=== PATIENT | female | born 1940 | race Caucasian/White ===

== ENCOUNTER → 2018-04-26 14:53 | Outpatient (CLI) | payer MEDICARE, OTHER, SELFPAY ==
[2018-04-26 17:24] LABS: Estimated Glomerular Filt Rate > 60.0 mL/min (>60)
== END ==
PROVIDERS: Family Provider Family Medicine; PCP Family Medicine; Visit Provider Surgery
DX: C50.912 Malignant neoplasm of unspecified site of left female breast (principal)
CPT/HCPCS: 36415; 82565

== ENCOUNTER → 2018-05-06 12:06 | Outpatient (CLI) | payer MEDICARE, OTHER, SELFPAY ==
--- NOTE | 2018-05-06 12:07 | DI.MRI.S_ITS ---
BREAST MRI OF BOTH BREASTS : 05/06/2018 CLINICAL: Malignant neoplasm of left breast. Comparison is made to exams dated: 03/31/2018 mammogram, 03/23/2018 mammogram, and 02/16/2018 mammogram - [facility]. Informed consent was obtained from the patient. Axial T1, T2, and pre and post contrast T1 images were obtained. Bilateral background breast enhancement is mild. There is a 0.4 cm x 0.7 cm x 0.6 cm irregular mass with a spiculated margin in the left breast at 3 o'clock middle depth (se 16 im 147 and se 10 im 42). There is a post biopsy marker in expected location at the inferior margin of the mass. There are numerous mediastinal masses and possible lingular masses which are poorly seen on breast MRI. IMPRESSION: KNOWN BIOPSY PROVEN MALIGNANCY 1. The 0.4 cm x 0.7 cm x 0.6 cm irregular mass in the left breast is a known biopsy positive for malignancy. 2. There is no MRI evidence of malignancy in the remaining left breast or in the right breast. 3. There are possible mediastinal lympn nodes or vascular structures as well as possible lingular masses. Given the lack of abnormal axillary lymph nodes and small size of the primary tumor breast cancer metastasis are unlikely. Recommend a chest CT with contrast for further evaluation. This exam was interpreted at Station ID: [id number]. Electronically Signed By: Zachariah Santos M.D. cj/:05/06/2018 14:28:23 ACR BI-RADS Category 6: Known biopsy proven malignancy 3346F
== END ==
PROVIDERS: Family Provider Family Medicine; PCP Family Medicine; Visit Provider Surgery
DX: C50.912 Malignant neoplasm of unspecified site of left female breast (principal)
CPT/HCPCS: C8908

== ENCOUNTER → 2018-05-12 08:32 | Outpatient (CLI) | payer MEDICARE, OTHER, SELFPAY ==
--- NOTE | 2018-05-12 08:55 | DI.CT.S_ITS ---
PROCEDURE: CT CHEST WO CON INDICATIONS: Breast cancer TECHNIQUE: Noncontrast 5 mm thick sections acquired from the pulmonary apices to the posterior costophrenic angles. 7 mm thick coronal and sagittal MIP reformats were then acquired. For radiation dose reduction, the following was used: automated exposure control, adjustment of mA and/or kV according to patient size. COMPARISON: None. FINDINGS: Image quality: Excellent. Lungs and pleura: No acute air space opacities. No pulmonary nodules. No pleural effusions or pneumothorax. Central and peripheral airways are patent and normal in caliber. Mediastinum: Heart size is normal. Coronary artery calcifications. Mild 8 mm thick pericardial effusion. No mediastinal adenopathy by size criteria. Thoracic aorta and central pulmonary arteries are normal in size. Esophagus is normal in caliber. No hiatal hernia. Bones and chest wall: No suspicious bony lesions. No vertebral body compression fractures. No axillary or supraclavicular adenopathy by size criteria. Thyroid gland appears normal. Abdomen: Visualized upper abdominal solid organs and bowel loops appear normal in the absence of contrast. Gallbladder is surgically absent. Splenic calcification IMPRESSION: 1. No evidence of active pulmonary disease or metastases. 2. Atheromatous vascular disease with coronary artery calcifications. 3. Small pericardial effusion, indeterminate. 4. Splenic calcifications indicating prior granulomatous infection. 5. Status post cholecystectomy. Dictated by: Thiago Gomes M.D. on 05/12/2018 at 9:32 Approved by: Thiago Gomes M.D. on 05/12/2018 at 9:38
== END ==
PROVIDERS: Family Provider Family Medicine; PCP Family Medicine; Visit Provider Surgery
DX: C50.912 Malignant neoplasm of unspecified site of left female breast (principal); I25.10 Atherosclerotic heart disease of native coronary artery without angina pectoris; I31.3 Pericardial effusion (noninflammatory); D73.89 Other diseases of spleen; Z90.49 Acquired absence of other specified parts of digestive tract
CPT/HCPCS: 71250; 99213

== ENCOUNTER → 2018-05-16 12:13 | Outpatient (CLI) | payer MEDICARE, OTHER, SELFPAY | PROVIDERS: Family Provider Family Medicine; PCP Family Medicine; Visit Provider Surgery | DX: N63.20 Unspecified lump in the left breast, unspecified quadrant (principal) ==

== ENCOUNTER 2018-05-25 08:30 | Day surgery (SDC) | payer MEDICARE, OTHER, SELFPAY ==
[2018-05-18 08:58] VITALS: BMI 34.4
[2018-05-25] VITALS (14 sets, daily range): BP systolic 142–177; BP diastolic 78–100; PULSE 60–72; RESP 14–18; TEMP 36.1–36.7; O2SAT 92–97; BMI 34.4
--- NOTE | 2018-05-25 | PATH_ITS ---
[facility] Accession Number: [id number] . 01 Material submitted: . PART A: LEFT BREAST SENTINEL NODES, 554 AND 4894 PART B: LEFT BREAST MASS . 02 Diagnosis: A. [place] lymph nodes, left breast, excision (554 and 4894): Two lymph nodes negative for metastatic carcinoma by immunohistochemistry studies (0/2). . B. Left Breast Mass, Lumpectomy After Needle Localization: CAP CANCER CASE SUMMARY . Invasive carcinoma with the following features: . Procedure: Lumpectomy and sentinel node biopsy after needle localization and mapping. Specimen Laterality: Left. . Tumor site: Left breast at 3 o'clock per previous biopsy report ([facility] [id number]; 03/31/2018). Tumor size: 1.0 cm. Histologic type: Infiltrating ductal carcinoma. Histologic grade: Michael histologic score 2 of 3. Glandular/Tubular differentiation: Score 3 of 3. Nuclear Pleomorphism: Score 2 of 3. Mitotic Rate: Score 1 of 3. Overall Grade: Intermediate Grade (score 6 of 9). Tumor focality: Unifocal. Ductal carcinoma in situ: Size (Extent) of DCIS: Six scattered foci, each less than 1 mm. Architectural patterns: Cribriform and micropapillary. Nuclear grade: Grade 1 of 3. Necrosis: Not identified. Lobular carcinoma in situ: Patchy regions of atypical lobular hyperplasia / LCIS are present . Macroscopic and microscopic extent of tumor Skin: Not applicable. Nipple: Not applicable. Skeletal muscle: Not applicable. . Margins Invasive carcinoma: Anterior: 8 mm. Posterior: 7 mm. Superior: 3 mm. Inferior: Greater than 10 mm. Medial: Greater than 10 mm. Lateral: 5 mm. Ductal carcinoma in situ: Anterior: Greater than 10 mm. Posterior: Greater than 10 mm. Superior: 4 mm. Inferior: Greater than 10 mm. Medial: Greater than 10 mm. Lateral: Greater than 10 mm. . Lymph nodes Total number of lymph nodes examined: 2. Number of sentinel lymph nodes examined: 2. Lymph Node Involvement: Number of lymph nodes with macrometastases: 0 Number of lymph nodes with micrometastases: 0 Number of lymph nodes with isolated tumor cells: 0 Size of largest metastatic deposit: Not applicable. Extranodal Extension: Not applicable. . Treatment effect: Response to Presurgical Therapy Breast: Not identified. Lymph nodes: Not identified. . Lymph-vascular invasion: Dermal lymph-vascular invasion: Not applicable. Pathologic staging: AJCC, 8th ed., 2017 Primary tumor: pT1b Regional lymph nodes: pN0(sn)(i-). . Additional pathologic findings: Changes consistent with previous instrumentation present. Microcalcifications: Focally present and adjacent to a small focus of DCIS and associated with benign ductal epithelium. Biopsy marker clip present in slice #24. . Ancillary studies: Biomarkers Performed Previously on Case: [facility], [id number]; 03/31/2018. Estrogen Receptor (ER) Status: Positive (3+, greater than 95%). Progesterone Receptor (PgR) Status: Positive (3+, 90%). HER2 (by immunohistochemistry): Negative (1+). HER2 (ERBB2) (by in situ hybridization): Not applicable. Ki-67: Low proliferation index (5%-10%). E-Cadherin: Positive MRV/06/01/2018 . 02 Electronically signed: . Tamiko Thornton MD, Pathologist NPI- [id number] . 01 Gross description: . (A) Received in formalin, labeled left sentinel nodes, 554 + 4894, are two unstained lymph nodes (1.3 x 1.0 x 0.8 cm and 0.6 x 0.5 x 0.2 cm). Lymph node #1 is serially sectioned and entirely submitted in cassette A1 and #2 is bisected and entirely submitted in cassette A2. (B) Received in formalin, labeled left breast mass, wire is lateral, short is superior, long is anterior, is a piece of breast tissue (1.5 cm AP, 7.7 cm SI, 12.2 cm ML) with no overlying skin. The specimen is oriented with two black sutures (short-superior, long-anterior) and the localization wire is lateral. The specimen is serially sectioned ML into 26 slices with the medial and lateral resection margins as slices #1 and #26, respectively. The breast tissue is fatty and contains a kiser-white solid firm irregular mass (1.0 x 0.9 x 0.8 cm) within slices #23-#25. The mass is 0.8 cm from the anterior, 0.7 cm from the posterior, 0.3 cm from the superior, 4.8 cm from the inferior, 10.8 cm from the medial, and 0.5 cm from the lateral resection margins. A silver colored metal biopsy marker is identified within slice #24 within the mass. No other nodules, masses or lesions are identified. Ink code: purple-anterior; yellow-posterior; black-superior; orange-inferior; green-medial; blue-lateral. Section code: (B1) medial resection margin, perpendicularly sectioned, patient account representative; (B2) slice #9, patient account representative; (B3) slice #11, patient account representative; (B4) slice #16, patient account representative; (B5) slice #22, tissue adjacent to mass, patient account representative; (B6-B7) slice #23, entirely submitted; (B8) slice #24, patient account representative; (B9) slice #25, patient account representative; (B10) lateral resection margin, tissue adjacent to mass, perpendicularly sectioned, one-half submitted. Note: The mass is entirely submitted. Approximate total fixation time in formalin-64 hours 30 minutes, calculated using a collection date of 05/25/2018 with no collection time given. (:cmc10 2031) (:cmc80 8415) /MRV . 02 Microscopic: . An immunohistochemical stain for CHRISTOPHER is performed on blocks A1 and A2. A control stain shows appropriate reactivity. . RESULTS: Blocks A1 and A2 CHRISTOPHER: Negative. . * This test was developed and its performance characteristics determined by [facility]. It has not been cleared or approved by the U.S. Food and Drug Administration. The FDA has determined that such clearance or approval is not necessary. This test is used for clinical purposes. It should not be regarded as investigational or for research. . 02 Pathologist provided ICD-10: C50.912 . 02 CPT . 354361, E37351, Y59735, 661457 Performed at: [address], [place], [place] [id number] MD Hai Morales MD Phone: [phone] Performed at: 02 [facility] [address] [place] [id number] MD Estrada Scott MD Phone: [phone]
--- NOTE | 2018-05-25 | DI.US.S_ITS ---
ULTRASOUND GUIDED WIRE LOCALIZATION LEFT BREAST WITH POST DIGITAL MAMMOGRAPHIC AND ULTRASOUND IMAGIN05/25/2018 CLINICAL: Pre-op wire localization. Correlation is made to exams dated: 05/06/2018 breast MRI - [facility], 03/31/2018 mammogram, and 03/31/2018 ultrasound biopsy - [facility]. A wire localization using ultrasound guidance was performed for the marker clip located in the left breast at 4 o'clock middle depth. The skin was prepped in the usual manner. Local anesthetic was administered to the access site. The localization was approached from the lateral aspect. A J-hook wire was inserted into the targeted area under ultrasound guidance. Post placement digital mammographic and ultrasound imaging was obtained. IMPRESSION: WIRE LOCALIZATION Wire localization for the marker clip in the left breast at 4 o'clock middle depth was successful. This exam was interpreted at Station ID: [id number]. Thiago rodriguez/:05/25/2018 15:09:49
--- NOTE | 2018-05-25 08:45 | DI.NM.S_ITS ---
PROCEDURE: NM SENTINEL NODE W IMAGING RADIOPHARMACEUTICAL: 0.5-1.0 mCi Millipore filtered Tc-99m sulfur colloid. INDICATIONS: localization of sentinel node TECHNIQUE: The area around the nipple was prepped and draped in a sterile fashion. Tc-99m sulfur colloid was injected intra-dermally in the outer edge of the areola in the right, left breast. Images were obtained subsequently. A body contour outline was obtained. FINDINGS: There is/are lymph node(s) in the ipsilateral axilla, which is marked on the skin and the images for referring physician. IMPRESSION: Administration of radiotracer into the right, left breast periareolar region for intra-operative sentinel lymph node localization. Dictated by: Thiago Gomes M.D. on 05/25/2018 at 10:58 Approved by: Thiago Gomes M.D. on 05/25/2018 at 11:00
--- NOTE | 2018-05-25 09:17 | DI.MG.S_ITS ---
SPECIMEN LEFT BREAST: 05/25/2018 CLINICAL: Breast specimen. Correlation is made to exams dated: 05/25/2018 mammogram - [facility], 03/31/2018 mammogram, and 03/23/2018 mammogram - [facility]. A surgical biopsy specimen was imaged for the previous biopsy site located in the left breast at 4 o'clock middle depth. IMPRESSION: SPECIMEN The imaged specimen includes the lesion, a biopsy clip, and the distal portion of the localization wire. This exam was interpreted at Station ID: [id number]. Thiago rodriguez/:05/25/2018 15:06:59
--- NOTE | 2018-05-25 09:17 | DI.MG.S_ITS ---
UNILATERAL LEFT DIGITAL DIAGNOSTIC MAMMOGRAM: 05/25/2018 CLINICAL: Left breast mass. Post wire localization. Comparison is made to exams dated: 05/06/2018 breast MRI - [facility], 03/31/2018 mammogram, and 03/23/2018 mammogram - [facility]. The tissue of the left breast is predominantly fatty. There is a titanium marker clip in the left breast at 4 o'clock middle depth. This titanium marker clip is at biopsy site. An US guided localizing wire is adjacent to the Bx marker. IMPRESSION: KNOWN BIOPSY PROVEN MALIGNANCY The titanium marker clip in the left breast is a known biopsy positive for malignancy. Localizing wire is adjacent to the marker. This exam was interpreted at Station ID: [id number]. NOTE: For mammograms, a report in lay terms will be sent to the patient. Approximately 15% of breast malignancies will not be visualized mammographically. In the management of a palpable breast mass, a negative mammogram must not discourage biopsy of a clinically suspicious lesion. Electronically Signed By: Thiago rodriguez/:05/25/2018 10:36:05 ACR BI-RADS Category 6: Known biopsy proven malignancy 3346F
--- NOTE | 2018-05-25 09:20 | SUR.PREOP ---
Pt arrived to opd, vs taken , saline lock started and pt taken to ir via wheelchair.
[2018-05-25] MEDS: LACTATED RINGERS 1,000 ML 42 ML IV (10:35)
--- NOTE | 2018-05-25 12:53 | PM.PREOP ---
Pre-operative Note Interval Note Pre-op Check: Yes History & Physical Reviewed by Physician Changes: No
[2018-05-25] MEDS: CEFAZOLIN 2 GM/100 ML FROZ.PIGGY IV (13:00)
[2018-05-25] MEDS: LIDOCAINE 1% W/EPI INJ 20 ML INJ (13:33)
[2018-05-25] MEDS: BUPIVACAINE 0.5% (PF) VIAL 30 ML INJ (13:34)
--- NOTE | 2018-05-25 14:36 | P.OP_ITS ---
Operative Date/Time/Diagnoses Date of procedure: 05/25/18 Time of procedure: 14:31 Pre-op diagnosis: Biopsy-proven left breast cancer Post-op diagnosis: same Procedure & Clinicians Procedure: Left breast lumpectomy and sentinel node biopsy after needle localization and mapping Same procedure as scheduled: Yes Indications: Biopsy-proven left breast cancer. No other lesions appreciated on MRI Surgeon: Joanie Kang Click Yes if Unassisted: Yes Anesthesia Type: General (Dr. Berrios) Operative Notes Findings: 1. 2 sentinel nodes. The 1st with 10 sec count of 554 and the 2nd with a 10 sec count of 4894. Background in the axilla of less than 10. Background in the room of 0 2. Clip, wire, and lesion all contained within the specimen. Closure Type: primary Estimated Blood Loss (mL): 15 Procedure in detail: After obtaining informed consent, the patient was brought to the operating room and placed in the supine position on the operating table. Following successful induction of general endotracheal anesthesia, appropriate padding of all bony prominences, and placement of appropriate monitors, the left breast and axilla were prepped and draped in a standard surgical fashion. A timeout was held per SCOAP protocol. Following injection of mixture of local anesthetics into the axillary fold on the left side, an incision was created and carried down through the skin and subcutaneous tissue to enter the axillary fat pad below. The neoprobe was used to identify the sentinel node. This was done by identifying 2 small node in level 2 and level 3 of the axillary packet. The 1st node had a 1 second count of approximately 55 in a background of less than 10. The 2nd node had a 1 sec count of 490 again in a background of less than 10. The node was carefully liberated from the remainder of the axillary packet being sure not to compromise any of the other lymphatic structures. All afferent and efferent lymphatics and vasculature were addressed with hemoclips prior to division. The wound was checked for hemostasis and irrigated with warm water. It was closed in 2 layers with Vicryl and Monocryl suture. We continued with lumpectomy on the left side. A curvilinear incision was created to include the wire on the left side. Using traction and counter- traction, the mass and localizing wire carefully dissected free from the overlying skin, underlying muscle, and surrounding breast tissue. The mass was delivered into the field and marked appropriately. It was sent for specimen x- ray. The wound was checked for hemostasis and irrigated with water. The radiologist called back into the room noting that the specimen x-ray contained the wire clip and mass. The wound was checked once again for hemostasis. It was irrigated copiously with warm water and aspirated free of all fluid. A small piece of Surgicel was placed in the breast cavity up into the chest wall. The wound was checked once again for hemostasis and then closed in 2 layers with Vicryl Monocryl suture. Dermabond was applied to the skin incisions. Fluffs and a breast binder were applied. All sponge, needle, and instrument counts were correct at the conclusion case. The patient tolerated the procedure very well. She was allowed awaken from anesthesia and taken to the post-anesthesia care unit in good condition. Complications: none Condition: stable Disposition: PACU Plan for aftercare: 1. Discharge to home 2. Follow-up with me in 2 weeks
--- NOTE | 2018-05-25 14:49 | SUR.PHASEI ---
Moaning but hasdenied pain on two separate occasions when responding that question has said no.
[2018-05-25] MEDS: ONDANSETRON 4 MG/2 ML INJ IV (15:06)
[2018-05-25] MEDS: OXYCODONE IR 5 MG TABLET PO (15:19)
--- NOTE | 2018-05-25 15:24 | SUR.PHASEI ---
O2 sats are marginal and hixtory of CPAP use noted. This device is not used in PACU. No apneic periods seen, only sats being a bit low. (No lower than 90%). Is wearing a breat binder.
== END 2018-05-25 16:30 | disposition home or self-care (01) ==
PROVIDERS: Family Provider Family Medicine; PCP Family Medicine; Visit Provider Surgery
PROC: (CPT 19301; principal; 2018-05-25 10:45)
DX: C50.912 Malignant neoplasm of unspecified site of left female breast (principal); Z17.0 Estrogen receptor positive status [ER+]
CPT/HCPCS: 19301; 38500; 19285; 76098; 77065; 78195; A9541; J0690; J1100; J2250; J2405; J2704; J3010

== ENCOUNTER → 2018-06-22 14:23 | Outpatient (CLI) | payer MEDICARE, OTHER, SELFPAY | PROVIDERS: Family Provider Family Medicine; PCP Family Medicine | DX: M85.852 Other specified disorders of bone density and structure, left thigh (principal); C50.919 Malignant neoplasm of unspecified site of unspecified female breast; Z90.722 Acquired absence of ovaries, bilateral | CPT/HCPCS: 77080 ==

== ENCOUNTER → 2018-11-17 14:15 | Day surgery (SDC) | payer MEDICARE, OTHER, SELFPAY | PROVIDERS: Family Provider Family Medicine; PCP Family Medicine; Visit Provider Surgery ==

== ENCOUNTER 2018-12-08 07:52 | Day surgery (SDC) | payer MEDICARE, OTHER, SELFPAY ==
[2018-12-08] VITALS (9 sets, daily range): BP systolic 85–144; BP diastolic 44–79; PULSE 56–62; RESP 11–19; TEMP 36.1–37.1; O2SAT 93–98; BMI 33.9
--- NOTE | 2018-12-08 | PATH_ITS ---
[facility] Accession Number: [id number] . 01 Material submitted: . PART A: DUODENUM PART B: ANTRUM PART C: GE JUNCTION . 02 Diagnosis: A. Duodenum: Superficial portion of small bowel mucosa with no diagnostic abnormality. Negative for active inflammation, features of sprue, regions of dysplasia or malignancy. . B. Antrum: Portions of gastric body type and antral mucosa with mild chronic gastritis. Negative for H. pylori organisms by immunohistochemistry studies. Negative for intestinal metaplasia. Negative for dysplasia and malignancy. . C. GE Junction: Squamous mucosa with no diagnostic abnormality. Intraepithelial eosinophils are not increased. Negative for dysplasia and malignancy. [facility]/12/12/2018 . 02 Electronically signed: . Tamiko Thornton MD, Pathologist NPI- [id number] . 01 Gross description: . Received three formalin-filled containers each labeled with the patient's name. . A. In a container labeled duodenum, the specimen consists of a 0.2 cm portion of tissue. Entirely submitted in cassette A. B. In a container labeled antrum are two 0.2 to 0.4 cm portions of tissue. Entirely submitted in cassette B. C. In a container labeled GE junction, the specimen consists of a 0.2 cm portion of tissue. Entirely submitted in cassette C. ([facility]:cmc80 73585) /[facility] . 02 Microscopic: . An immunohistochemical stain was performed on block B1 to evaluate for Helicobacter organisms and is negative. The control stain showed appropriate reactivity. . * This test was developed and its performance characteristics determined by [facility]. It has not been cleared or approved by the U.S. Food and Drug Administration. The FDA has determined that such clearance or approval is not necessary. This test is used for clinical purposes. It should not be regarded as investigational or for research. . 02 Pathologist provided ICD-10: K29.70 . 02 CPT . 575808, 948978, 107766, Z09729 Performed at: 01 [facility] [address] [place] [address], [place], [place] [id number] MD Hai Morales MD Phone: [phone] Performed at: 02 [facility] [address] [place], [place] [id number] MD Myra Coronado MD Phone: [phone]
[2018-12-08] MEDS: SODIUM CHLORIDE 0.9% 1,000 ML 100 ML IV (09:10)
--- NOTE | 2018-12-08 09:54 | PM.PREOP ---
Pre-operative Note Interval Note History & Physical reviewed/Exam performed by Physician: Yes Changes to H&P: No
[2018-12-08] MEDS: TETRACAINE/BENZOCAINE/BUTAMBEN (CETACAINE) BOTTLE 1 SPRAY TOP (09:58)
[2018-12-08] MEDS: LIDOCAINE 4% SOLN 50 ML 20 ML TOP (09:58)
[2018-12-08] MEDS: fentaNYL 250 MCG/5 ML INJ IV (09:59)
[2018-12-08] MEDS: MIDAZOLAM 5 MG/5 ML VIAL IV (10:00)
--- NOTE | 2018-12-08 10:11 | PM.OP.1 ---
Operative Date/Time/Diagnoses Date of procedure: 12/08/18 Time of procedure: 10:11 Pre-op diagnosis: Abdominal pain Post-op diagnosis: same Procedure & Clinicians Procedure: Esophagogastroduodenoscopy with biopsies Same procedure as scheduled: Yes Indications: Abdominal pain Surgeon: Joanie Kang Anesthesia Type: Sedation (Versed 4 mg; fentanyl 150 mcg) Operative Notes Findings: 1. Normal duodenum 2. Normal antrum 3. 5 cm hiatal hernia with the diaphragmatic hiatus at 40 cm and mucosal junction at 35 cm 4. Distal esophageal ulceration with stigmata of recent bleeding. Also a developing Schatzki ring. 5. Normal posterior oropharynx Closure Type: not applicable Specimen(s): other (Cold forceps biopsies of 1. Duodenum, 2. Antrum, 3. GE junction) Estimated Blood Loss (mL): 1 Procedure in detail: After obtaining informed consent, the patient was brought to the GI suite and placed in the left lateral decubitus position on the examination table. After placement of appropriate monitors, the patient was given incremental doses of Versed and Fentanyl until an appropriate level of sedation was achieved. A time out was held per SCOAP protocol. A bite block was gently placed between the patient's teeth. The endoscope was lubricated and then passed into the patient's posterior oropharynx. The esophagus was cannulated under direct vision and the scope was passed to the second portion of the duodenum without difficulty. The scope was then withdrawn with careful examination of all areas of the upper GI tract and mucosa. In the stomach, the instrument was retroflexed and the GE junction examined. The scope was straightened and the procedure continued with examination of the remainder of the upper GI tract. Findings are noted above. Air was aspirated from the stomach and the endoscope gently removed from the esophagus. The patient was allowed to awaken from sedation without difficulty and taken to the post-anesthesia care unit in good condition. Total sedation time was 11 min Complications: none Condition: stable Disposition: PACU Plan for aftercare: 1. Discharge to home 2. Twice daily proton pump inhibitors 3. We will contact you with pathology results and any further recommendations.
--- NOTE | 2018-12-08 11:02 | SUR.PHASEII ---
Patient awake and stable for discharge to home. Discharge instructions reviewed and given to patient. Dr. Kang spoke to patient regarding EGD results prior to discharge to home. Discharged to home via [facility].
== END 2018-12-08 11:18 | disposition home or self-care (01) ==
PROVIDERS: Family Provider Family Medicine; PCP Family Medicine; Visit Provider Surgery
PROC: 0DJ08ZZ Inspection of Upper Intestinal Tract, Via Natural or Artificial Opening Endoscopic (ICD-10-PCS; CPT 43235; principal; 2018-12-08 10:15)
DX: K29.70 Gastritis, unspecified, without bleeding (principal); G47.33 Obstructive sleep apnea (adult) (pediatric); I10 Essential (primary) hypertension; E03.9 Hypothyroidism, unspecified; K44.9 Diaphragmatic hernia without obstruction or gangrene; K22.10 Ulcer of esophagus without bleeding; K22.2 Esophageal obstruction
CPT/HCPCS: 43239; 88305; 88342; 99152; J2250; J3010

== ENCOUNTER → 2020-06-12 10:03 | Outpatient (CLI) | payer MEDICARE, OTHER, SELFPAY | PROVIDERS: Family Provider Family Medicine; PCP Family Medicine; Referring Provider Internal Medicine Hematology & Oncology; Visit Provider Internal Medicine Hematology & Oncology | DX: M81.0 Age-related osteoporosis without current pathological fracture (principal); Z78.0 Asymptomatic menopausal state; E07.9 Disorder of thyroid, unspecified; Z85.3 Personal history of malignant neoplasm of breast; Z90.722 Acquired absence of ovaries, bilateral; Z82.62 Family history of osteoporosis; Z79.811 Long term (current) use of aromatase inhibitors | CPT/HCPCS: 77080 ==

== ENCOUNTER → 2020-08-17 09:48 | Outpatient (CLI) | payer MEDICARE, OTHER, SELFPAY ==
[2020-08-17 10:44] LABS: Add Manual Diff / Slide Review NO; Basophils Absolute Auto 100 /uL (0-100); Basophils Percent Auto 0.7 % (0-2); Eosinophils Absolute Auto 100 /uL (0-450); Eosinophils Percent Auto 1.3 % (2-4); Hematocrit 40.5 % (36-46); Hemoglobin 13.6 g/dL (12.0-16.0); Lymphocytes Absolute Auto 1000 /uL (1100-4500); Mean Corpuscular HGB Conc 33.7 % (30-36); Mean Corpuscular Hemoglobin 30.9 PG (26-34); Mean Corpuscular Volume 91.6 fL (80-100); Monocytes Absolute Auto 600 /uL (0-900); Monocytes Percent Auto 7.5 % (3-14); Neutrophils Absolute Auto 5900 /uL (1500-7000); Neutrophils Percent Auto 77.5 % (50-75); Platelet Count 219 X10^3/uL (150-400); Red Blood Cell Count 4.42 X10^6/uL (4.0-5.2); White Blood Cell Count 7.6 X10^3/uL (4.5-11.0)
[2020-08-17 11:06] LABS: BUN Creatinine Ratio 20.8 (6-22); Blood Urea Nitrogen 11 mg/dL (7-17); Calcium 9.5 mg/dL (8.4-10.2); Carbon Dioxide 28 mmol/L (22-32); Chloride 102 mmol/L (98-107); Estimated Glomerular Filt Rate > 60.0 mL/min (>60); Glucose 152 mg/dL (80-110); HEMOLYSIS < 15 (0-50); Potassium 3.5 mmol/L (3.4-5.1); Sodium 137 mmol/L (137-145)
[2020-08-19 11:26] LABS: COVID19 Sendout Not Detected (Not Detect)
== END ==
PROVIDERS: Physician Assistant; Family Provider Family Medicine; PCP Family Medicine; Referring Provider Orthopaedic Surgery; Visit Provider Orthopaedic Surgery
DX: Z01.818 Encounter for other preprocedural examination (principal); Z01.812 Encounter for preprocedural laboratory examination
CPT/HCPCS: 36415; 80048; 85025; 87635; 93005

== ENCOUNTER 2020-08-20 10:42 | Day surgery (SDC) | payer MEDICARE, OTHER, SELFPAY ==
[2020-08-16 09:05] VITALS: BMI 34.4
[2020-08-20] VITALS (9 sets, daily range): BP systolic 159–183; BP diastolic 86–127; PULSE 59–67; RESP 10–28; TEMP 36.2–36.8; O2SAT 95–97; BMI 34.4
--- NOTE | 2020-08-20 | DI.RAD.S_ITS ---
PROCEDURE: XR LUMBAR SPINE 2-3V INDICATIONS: FX REPAIR TECHNIQUE: 10 sequential views of the lumbar spine were acquired. COMPARISON: [facility] Outside Film, MR, MR LUMBAR SPINE WITHOUT CONTRAST, 08/03/2020, 17:12. FINDINGS: Bones: The images show this series of procedure being performed at the vertebral plana compression fracture at the thoracolumbar junction. At termination of the vertebroplasty/ kyphoplastyinjection no retropulsion of bone cement into the spinal canal is present. Soft tissues: Overlying bowel gas pattern is normal. No suspicious soft tissue calcifications. IMPRESSION: Expected anatomic positioning medullary space bone-cement for kyphoplasty bone-cement performed by Dr. Edouard. Dictated by: Jose Manuel Henley M.D. on 08/20/2020 at 15:45 Approved by: Jose Manuel Henley M.D. on 08/20/2020 at 15:48
--- NOTE | 2020-08-20 | PATH_ITS ---
[facility] Accession Number: [id number] . 01 Material submitted: . bone - BONE BIOPSY L-1 . 02 Diagnosis: Bone Biopsy L1: Fragments of necrotic bone and fibrin. Negative for epithelial cells by immunohistochemistry studies. Negative for estrogen receptor-positive nuclei by immunohistochemistry studies. Please see comment. MRV 08/23/2020 1456 Local . 02 Comment: Due to the absence of cellular material in this specimen, additional sampling could be considered, if clinically appropriate. . 02 Electronically signed: . Tamiko Thornton MD, Pathologist NPI- [id number] . 01 Gross description: . Received in formalin, labeled bone biopsy L1, and consists of a 0.5 x 0.4 x 0.3 cm garcia trabeculated fragment of bone, which is entirely submitted following decalcification in cassette A1. ([id number]) /MRV 08/21/2020 1318 Local . 02 Microscopic: . Immunohistochemical studies were performed with the following results: . RESULTS: CHRISTOPHER: Negative for epithelial cells; the specimen consists of fibrin and fragments of bone. ER: Negative for positive nuclei; the specimen consists of fibrin and fragments of bone. . 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 No epithelial cells or estrogen positive nuclei present; no tumor identified. The specimen consists predominantly of fibrin and scant necrotic bone fragments. The control tissue stained appropriately. . * This test was developed and its performance characteristics determined by [employer]. It has not been cleared or approved by the U.S. Food and Drug Administration. The FDA has determined that such clearance or approval is not necessary. This test is used for clinical purposes. It should not be regarded as investigational or for research. . 02 Pathologist provided ICD-10: Z85.3 . 02 CPT . 605266, 230777 Performed at: 01 [facility] [address] [place] [address], [place], [place] [id number] MD Hai Morales MD Phone: [phone] Performed at: [facility] [address] [place], [place] [id number] MD Myra Coronado MD Phone: [phone]
--- NOTE | 2020-08-20 10:53 | SUR.OPER ---
Prone on spine table, head in foam head support, padded chest and pelvic supports, gel pad at knees, lower legs supported by pillows; nipples, genitalia and toes free of pressure, arms secured on foam padded arm boards at <90 degrees abduction. Tape over blanket at thigh secured to table.
[2020-08-20] MEDS: LACTATED RINGERS 1,000 ML 42 ML IV (11:45)
--- NOTE | 2020-08-20 11:49 | PM.PREOP ---
Pre-operative Note COVID-19 COVID-19 status: Negative Result date/Date tested (Pos, Neg/Pending): 08/17/20 Interval Note History & Physical reviewed/Exam performed by Physician: Yes Changes to H&P: No
--- NOTE | 2020-08-20 12:10 | PM.OP.1 ---
Operative Date/Time/Diagnoses Date of procedure: 08/20/20 Time of procedure: 12:50 Pre-op diagnosis: L1 compression fracture Osteoporosis with current fracture Back pain Post-op diagnosis: same Procedure & Clinicians Procedure: L1 kyphoplasty Same procedure as scheduled: Yes Indications: [age] year old female with intractable pain from an L1 compression fracture. They had failed conservative management and requested operative intervention. Risks and benefits of surgery were discussed and appropriate consents were obtained. Surgeon: Samuel Edouard Click Yes if Unassisted: Yes Anesthesia Type: General Operative Notes Findings: None Closure Type: primary Specimen(s): other (L1 vertebral biopsy) Estimated Blood Loss (mL): 2 Procedure in detail: The patient was brought to the operating room and intubated on the table. They were then rolled over to the well-padded prone position. Time-out was performed. We confirmed positioning with two fluoroscopy views. The back was prepped and draped in the standard sterile fashion. Preoperative antibiotics were given. Using fluoroscopic guidance, the planned incision site was infiltrated with Marcaine with epinephrine and injected down to the entry site of the left pedicle of L1. A small stab incision was made and we advanced a Jamshiedi needle down the left pedicle into the vertebral body. A bone biopsy was harvested from this and sent to pathology. We then passed the DFine osteotome and opened it up to create a void inside the vertebral body. We then began injecting the cement. This was done with frequent fluoroscopy imaging. There was no extravasation. Once we had good fill of the L1 vertebral body the injection was stopped and the trocars were removed. Final x-rays were taken. The wound was cleaned. Steri-Strips and sterile dressing were placed. Patient was rolled over, extubated, and brought to recovery without complications. Complications: none Post-operative Condition: stable Disposition: PACU Plan for aftercare: Outpatient. Activity as tolerated.
[2020-08-20] MEDS: ACETAMINOPHEN 325 MG TABLET 975 MG PO (12:11)
[2020-08-20] MEDS: CEFAZOLIN 2 GM/100 ML FROZ.PIGGY IV (12:11)
[2020-08-20] MEDS: BUPIVACAINE 0.25% W/ EPI 30 ML VIAL 60 ML INJ (12:57)
--- NOTE | 2020-08-20 13:53 | SUR.PHASEI ---
Report to Luis RN , pt stable sitting up sipping gingerale denies pain or nausea. Into phase 2 now
== END 2020-08-20 14:22 | disposition home or self-care (01) ==
PROVIDERS: Family Provider Family Medicine; PCP Family Medicine; Referring Provider Orthopaedic Surgery; Visit Provider Orthopaedic Surgery
PROC: (CPT 22514; principal; 2020-08-20 12:45)
DX: S32.010A Wedge compression fracture of first lumbar vertebra, initial encounter for closed fracture (principal); M80.08XA Age-related osteoporosis with current pathological fracture, vertebra(e), initial encounter for fracture; M54.5 Low back pain; J45.909 Unspecified asthma, uncomplicated; I25.10 Atherosclerotic heart disease of native coronary artery without angina pectoris; I10 Essential (primary) hypertension; G47.33 Obstructive sleep apnea (adult) (pediatric); K21.9 Gastro-esophageal reflux disease without esophagitis; R73.03 Prediabetes
CPT/HCPCS: 22514; 72100; 73100; 76000; C1776; J0330; J0690; J2405; J2704; J3010

== ENCOUNTER → 2021-07-11 11:57 | Outpatient (CLI) | payer MEDICARE, OTHER, SELFPAY ==
--- NOTE | 2021-07-11 | DI.MRI.S_ITS ---
BREAST MRI OF BOTH BREASTS: 07/11/2021 CLINICAL: Left breast cancer. Comparison is made to exams dated: 06/19/2021 ultrasound biopsy, 06/11/2021 ultrasound, 06/11/2021 mammogram, 05/19/2021 mammogram, 05/13/2020 mammogram - [facility], and 05/06/2018 breast MRI - [facility]. INDICATIONS: LEFT BREAST CANCER TECHNIQUE: The patient was placed prone in a dedicated breast imaging coil. Precontrast axial STIR and 3D FLASH without fat saturation sequences were obtained. Both before and after bolus injection of contrast, sequential 1-minute axial 3D FLASH with fat saturation sequences for 3 time points, with subtraction images and maximum intensity projections (MIP's) generated. Delayed sagittal FLASH images with fat saturation were also obtained. Computer-aided detection, including computer algorithm analysis of MRI image data for lesion detection and characterization, pharmacokinetic analysis, with further physician review for interpretation, was performed. FINDINGS: Image quality: Excellent. There is minimal background parenchymal enhancement. Right breast: No suspicious mass or non mass enhancement. No significantly enlarged axillary or internal mammary lymph nodes by cross-sectional imaging size criteria. Left breast: Postsurgical changes are seen in the central portion of the left breast mid to posterior depth from prior lumpectomy. No residual or recurrent nodular enhancement is seen at the surgical site. An irregular homogeneously enhancing mass measuring 1.4 x 0.7 x 1.4 cm (51/7, 80/19) adjacent to a biopsy clip in the left breast at the 2 o'clock position anterior depth corresponds to the known biopsy-proven malignancy. The mass measures slightly larger when compared to the ultrasound from 06/11/2021. On kinetic curve assessment, the mass demonstrates rapid enhancement with predominantly progressive delayed enhancement, with small area washout superiorly. In the upper inner quadrant of the left breast at the 11 o'clock position anterior depth approximately 6 cm from the nipple, there is a superficial oval circumscribed enhancing mass measuring 0.6 x 0.5 cm (65/7, 59/19) with possible fatty hilum, which may represent in intramammary lymph node, but was not seen on the prior MRI from 05/06/2018. This finding can be seen on the prior mammogram from 05/19/2021. Additionally, there is a 0.4 x 0.4 cm oval circumscribed enhancing mass in the upper outer quadrant of the left breast at the 1 o'clock position approximately 10 cm from the nipple (89/7, 83/19), which also may represent a lymph node but was not previously seen on the prior MRI. This lesion can also be seen on the recent prior screening mammogram. A 0.3 cm focus of enhancement in the far posterior left breast central to the nipple (46/7, 72/19) is stable when compared to the MRI from 05/06/2018, and is considered benign. A surgical clip is noted in the left axilla. No significantly enlarged axillary or internal mammary lymph nodes by cross-sectional imaging size criteria. Miscellaneous: Trace pleural fluid is seen along the anterior right hemithorax. Otherwise, no significant abnormality is seen in the included portions of the anterior chest wall or upper abdomen. IMPRESSION: INCOMPLETE: NEEDS ADDITIONAL IMAGING EVALUATION 1. Known biopsy-proven malignancy in the left breast measures 1.4 x 0.7 x 1.4 cm, slightly larger when compared to the prior diagnostic ultrasound. 2. Two circumscribed enhancing lesions in the left breast measuring 0.6 cm at the 11 o'clock position anterior depth and 0.4 cm at the 1 o'clock position posterior depth resemble intramammary lymph nodes and may be reactive, but malignant involvement is not excluded. A second-look ultrasound is recommended for further evaluation. These lesions can be seen mammographically if stereotactic guidance is needed during work up. 3. No suspicious abnormality in the right breast. No significantly enlarged or morphologically abnormal lymphadenopathy is seen. BIRADS 0: Needs additional imaging evaluation. Second-look left breast ultrasound is recommended for further evaluation. This exam was interpreted at Station ID: [id number]. Electronically Signed By: Herber Ferrer M.D. ar/:07/11/2021 15:00:39 Entry: - 07/14/2021 09:58:37 ACR BI-RADS Category 0: Incomplete [id number]
== END ==
PROVIDERS: Family Provider Family Medicine; PCP Family Medicine; Referring Provider Surgery; Visit Provider Surgery
DX: C50.412 Malignant neoplasm of upper-outer quadrant of left female breast (principal); N63.22 Unspecified lump in the left breast, upper inner quadrant; N63.21 Unspecified lump in the left breast, upper outer quadrant
CPT/HCPCS: 77049; A9579

== ENCOUNTER → 2025-01-17 09:51 | Outpatient (CLI) | payer MEDICARE, OTHER, SELFPAY ==
--- NOTE | 2025-01-17 10:00 | DI.CT.S_ITS ---
PROCEDURE: CT UE LT WO CON INDICATIONS: FRACTURE FOLLOW UP TECHNIQUE: Noncontrast 0.75 mm thick sections acquired from the acromioclavicular joint to the inferior scapula, with coronal and sagittal reformatting. COMPARISON: [facility], , SHOULDER MIN 2VW (LT), 11/30/2024, 9:43. [facility], , SHOULDER MIN 2VW (LT), 11/02/2024, 9:37. FINDINGS: Image quality: Excellent. Bones: Re-identified comminuted and mildly impacted proximal humeral surgical neck fracture with extension to the greater/lesser tuberosities. The humeral head is slightly rotated counter-clockwise, relative to the glenoid (4/55). There is persistent half shaft width of medial displacement of the dominant distal humeral fracture fragment relative to the humeral head (4/53). Mild osseous bridging is present between the dominant fracture fragments Joints: Small-moderate glenohumeral joint effusion. Small intra-articular bodies versus fracture fragments in the axillary pouch (4/56). Mild acromioclavicular osteoarthritis. Type 2 acromion with anteriorly directed subacromial spurring (5/48). Muscles: Mild supraspinatus and mild cranial infraspinatus muscle atrophy. Tendons: Nonvisualization of the long head of the biceps tendon contour in the bicipital groove, which may represent tendon tear of uncertain chronicity. Vessels: Moderate-severe triple-vessel coronary artery calcifications. No aneurysmal dilatation of the visualized left upper extremity arterial vasculature. Lymph nodes: No left axillary lymphadenopathy. Left axillary surgical clips. IMPRESSION: 1. Re-identified left proximal humeral surgical neck fracture with ongoing osseous bridging, persistent medial displacement, which may predispose to malunion. 2. Small-moderate glenohumeral joint effusion with intra-articular bodies versus fracture fragments. Dictated by: Joe Aden M.D. on 01/17/2025 at 10:48 Approved by: Joe Aden M.D. on 01/17/2025 at 11:07
== END ==
PROVIDERS: Family Provider Family Medicine; PCP Family Medicine; Referring Provider Orthopaedic Surgery; Visit Provider Orthopaedic Surgery
DX: M25.512 Pain in left shoulder (principal); M25.412 Effusion, left shoulder; M24.012 Loose body in left shoulder; S42.212A Unspecified displaced fracture of surgical neck of left humerus, initial encounter for closed fracture
CPT/HCPCS: 73200